=== PATIENT | male | born 1960 | race Caucasian/White ===

== ENCOUNTER 2017-06-21 10:38 | Emergency (ER) | payer MEDICARE, OTHER ==
[2017-06-21 11:04] VITALS: BP 127/86
--- NOTE | 2017-06-21 12:34 | Emergency Department Report ---
ED Lower Extremity HPI - General Chief Complaint: Extremity Injury, Lower Stated Complaint: RT KNEE PAIN Time Seen by Provider: 06/21/17 12:31 Source: patient Mode of arrival: Ambulatory Limitations: Physical Limitation - History of Present Illness MD Complaint: knee injury -: Sudden Injury: Knee: Right Type of Injury: other (fall skating) Place: home Severity: moderate Improves With: nothing Worsens With: nothing Context: fall Associated Symptoms: other (pain w ambu. no swelling effusion). denies: snap/ pop sensation, swelling, numbness, tingling, unable to bear weight, able to partially bear weight - Related Data Previous Rx's Medication Instructions Recorded Last Taken Type traMADol [Ultram] 50 mg PO Q6HR PRN #10 tablet 06/21/17 Unknown Rx Allergies Allergy/AdvReac Type Severity Reaction Status Date / Time aspirin AdvReac Angioedema Verified 06/21/17 11:00 codeine AdvReac Angioedema Verified 06/21/17 11:00 ED Review of Systems ROS: Stated complaint: RT KNEE PAIN Other details as noted in HPI Comment: All other systems reviewed and negative Constitutional: no symptoms reported, see HPI Eyes: as per HPI ENT: as per HPI Respiratory: no symptoms reported Cardiovascular: as per HPI Endocrine: no symptoms reported, see HPI Gastrointestinal: as per HPI Genitourinary: as per HPI Musculoskeletal: as per HPI, other (r knee pain). denies: back pain, joint swelling, arthralgia, myalgia Skin: as per HPI Neurological: as per HPI ED Past Medical Hx - Past Medical History Previous Medical History?: Yes Hx Asthma: Yes Additional medical history: lazy right eye - Surgical History Past Surgical History?: Yes Additional Surgical History: Pituitary tumor operation - Family History Family history: no significant - Social History Smoking Status: Former Smoker Substance Use Type: None - Medications Home Medications: Home Medications Medication Instructions Recorded Confirmed Last Taken Type traMADol [Ultram] 50 mg PO Q6HR PRN #10 tablet 06/21/17 Unknown Rx ED Physical Exam - General Limitations: No Limitations, Physical Limitation General appearance: alert, in no apparent distress - Head Head exam: Present: atraumatic - Eye Eye exam: Present: normal appearance - ENT ENT exam: Present: normal exam, mucous membranes moist - Neck Neck exam: Present: normal inspection. Absent: tenderness, meningismus - Respiratory Respiratory exam: Present: normal lung sounds bilaterally. Absent: respiratory distress, wheezes - Cardiovascular Cardiovascular Exam: Present: regular rate, normal rhythm - GI/Abdominal GI/Abdominal exam: Present: soft - Rectal Rectal exam: Present: deferred - Extremities Exam Extremities exam: Present: normal inspection, full ROM, normal capillary refill. Absent: tenderness, pedal edema, joint swelling, calf tenderness - Back Exam Back exam: Present: normal inspection, full ROM. Absent: tenderness - Neurological Exam Neurological exam: Present: alert, oriented X3, CN II-XII intact, reflexes normal. Absent: motor sensory deficit - Psychiatric Psychiatric exam: Present: normal affect, normal mood - Skin Skin exam: Present: warm, dry, intact ED Course Vital Signs 06/21/17 06/21/17 11:00 14:35 Temperature 97.8 F Pulse Rate 50 L Respiratory 18 16 Rate Blood Pressure 127/86 O2 Sat by Pulse 97 Oximetry - Reevaluation(s) Reevaluation #1: 06/21/17 sp fall while skating using old crutches there is full rom w no tenderness of joint lines no effusion no swelling no ecchymosis no laxity xray neg per rad flower for comfort dc home w dc poc and ortho fu ED Lower Extremity MDM - Radiology Data Radiology results: report reviewed, image reviewed Critical care attestation.: If time is entered above; I have spent that time in minutes in the direct care of this critically ill patient, excluding procedure time. ED Disposition Clinical Impression: Knee pain, Knee strain Disposition: DC-01 TO HOME OR SELFCARE Is pt being admited?: No Does the pt Need Aspirin: No Condition: Stable Instructions: Knee Pain (ED), Arthralgia (ED) Additional Instructions: ice rest elevate crutches motrin over the counter for mild pain follow up ortho MD crenshaw to knee for comfort motrin for mild pain ultram for severe pain Prescriptions: traMADol [Ultram] 50 mg PO Q6HR PRN #10 tablet PRN Reason: Pain Referrals: PRIMARY CARE, [Primary Care Provider] - 3-5 Days VILMA HDZ MD [Staff Physician] - 3-5 Days Time of Disposition: 14:21
[2017-06-21] MEDS ORDERED: TORADOL IM ONE (14:19)
--- NOTE | 2017-06-21 14:19 | XRay Report ---
RIGHT KNEE RADIOGRAPHS INDICATION: Status post fall, pain. COMPARISON: None similar. FINDINGS: AP, lateral and oblique right knee radiographs demonstrate intact articulation. Mild degenerative spurring. Slight suprapatellar soft tissue swelling not entirely excluded. CONCLUSION: No acute right knee radiographic abnormality with mild degenerative changes noted. Thank you for the opportunity to participate in this patient's care.
== END 2017-06-21 14:30 | disposition home or self-care (01) ==
LOC: ED 10:38
DX: S76.911A Strain of unspecified muscles, fascia and tendons at thigh level, right thigh, initial encounter (principal); J45.909 Unspecified asthma, uncomplicated; Z88.6 Allergy status to analgesic agent; Z87.891 Personal history of nicotine dependence; W18.30XA Fall on same level, unspecified, initial encounter; Y93.51 Activity, roller skating (inline) and skateboarding; Y92.89 Other specified places as the place of occurrence of the external cause; Y99.8 Other external cause status
CPT/HCPCS: 73562; 96372; 99283; J1885